=== PATIENT | male | born 1960 | race Caucasian/White ===

== ENCOUNTER 2018-01-21 07:50 | Day surgery (SDC) | payer OTHER ==
[~2018-01-21 07:50] MED LIST: CATAFLAN PO; GABAPENTIN800 MG PO; ULTRAM50 MG PO
[2018-01-21] MEDS ORDERED: COLACE100 MG PO (11:45)
[2018-01-21] MEDS ORDERED: PERCOCET 5-3251 EACH PO (11:45)
[2018-01-21] MEDS ORDERED: CIPRO500 MG PO ×2 (12:35→12:36)
== END 2018-01-21 17:35 | disposition home or self-care (01) ==
LOC: CIR.AMB 07:50
DX: K64.8 Other hemorrhoids (principal); K64.4 Residual hemorrhoidal skin tags